=== PATIENT | male | born 1955 | race Caucasian/White ===

== ENCOUNTER 2019-03-13 12:29 | Emergency (ER) | payer OTHER ==
[2019-03-13 12:43] VITALS: BP 125/85
--- NOTE | 2019-03-13 13:16 | UC ---
Laceration HPI - HPI Summary HPI Summary: 63 yo male presents with nose injury. He tells me that he mis-stepped off the bottom rung of a ladder and his face went forward into the ladder hitting his nose. He sustained a small laceration on his nose and began to have a bloody nose. Bloody nose stopped with direct pressure. He applied a bandage and came to . States he thinks his tetanus is UTD. No LOC. Breathing without difficulty through his nose. - History Of Current Complaint Chief Complaint: UCLaceration Stated Complaint: LAC./BLOODLY NOSE Time Seen by Provider: 03/13/19 13:16 Hx Obtained From: Patient Laceration Location: Face Mechanism Of Injury: Blunt Trauma Onset/Duration: Sudden Onset Severity: Moderate Pain Intensity: 6 Pain Scale Used: 0-10 Numeric - Allergies/Home Medications Allergies/Adverse Reactions: Allergies Allergy/AdvReac Type Severity Reaction Status Date / Time No Known Allergies Allergy Verified 03/13/19 12:43 Home Medications: Home Medications Citalopram TAB* [CeleXA TAB*] 50 mg PO BEDTIME 03/13/19 [History Confirmed 03/13] buPROPion SR TAB* [Wellbutrin SR TAB*] 2 tab PO DAILY 03/13/19 [History Confirmed 03/13/19] PMH/Surg Hx/FS Hx/Imm Hx Psychological History: Anxiety, Depression - Surgical History Surgical History: None Surgery Procedure, Year, and Place: denies - Family History Known Family History: Positive: None - Social History Lives: With Family Alcohol Use: None Substance Use Type: None Smoking Status (MU): Never Smoked Tobacco Review of Systems All Other Systems Reviewed And Are Negative: Yes Constitutional: Positive: Negative Skin: Positive: Other - Nose laceration Eyes: Positive: Negative ENT: Positive: Other - Nose pain Respiratory: Positive: Negative Cardiovascular: Positive: Negative Neurological: Positive: Negative Psychological: Positive: Negative Physical Exam - Summary Physical Exam Summary: GENERAL: NAD. WDWN. No pain distress. SKIN: Overlying nasal bridge there is an 8mm linear laceration that is in good approximation at rest. Clean wound. Scant bleeding. HEENT: Head: No raccoon eyes or caballero's sign Eyes: PERRLA. EOM intact. Ears: Hearing grossly normal. Nose: Nasal mucosa on right with dried blood. Moderate inflammation. NTTP maxillary and frontal sinus. TTP inferior nasal bone. NECK: Supple. Nontender. FROM. CHEST: CTAB. No r/r/w. No accessory muscle use. Breathing comfortably and in no distress. CV: RRR. Without m/r/g. Pulses intact. Brisk cap refill. NEURO: Alert. CN II-XII grossly intact. PSYCH: Age appropriate behavior. Triage Information Reviewed: Yes Vital Signs: Initial Vital Signs Temp 98.9 F 03/13/19 12:40 Pulse 76 03/13/19 12:40 Resp 16 03/13/19 12:40 BP 125/85 03/13/19 12:40 Pulse Ox 100 03/13/19 12:40 Vital Signs Reviewed: Yes Laceration Repair - Laceration Repair 1 Description: Linear Laceration Size After Repair: Length (cm) - 0.8 Modified For Repair: No Cleansing Completed Via Routine Prep: Yes Closure Material: Skin Adhesive Closure Method: Single Layer Suture Of: Skin Laceration Course/Dx - Course/Dx Course Of Treatment: XR nasal: REPORT AND IMPRESSION: #. Minimally displaced fracture at the tip of the nasal bones. Overlying soft tissue swelling. #. Unremarkable orbital margins, zygomatic arches, and normally aerated maxillary, ethmoid, and frontal paranasal sinuses. Wound was cleansed with NS. Laceration in good approximation at rest, therefore dermabond was applied and dressed with a band-aid. Advised to f/u with ENT after nose edema resolves (likely 1 week). Apply ice to nose to decrease pain and swelling. - Diagnosis Provider Diagnosis: Laceration of nose, Nasal fracture Discharge - Sign-Out/Discharge Documenting (check all that apply): Patient Departure All imaging exams completed and their final reports reviewed: Yes - Discharge Plan Condition: Stable Disposition: HOME Patient Education Materials: Nasal Fracture (ED), Skin Adhesive Care (ED) Referrals: Emre Sweet MD [Medical Doctor] - 1 Week Bernadette Aviles MD [Primary Care Provider] - Additional Instructions: If you develop a fever, shortness of breath, chest pain, new or worsening symptoms - please call your PCP or go to the ED immediately. 1) Rest and apply ice to your nose to decrease pain and swelling 2) Please schedule an appointment with the Ear, Nose, and Throat doctor in 1 week for a recheck of your nose fracture - Billing Disposition and Condition Condition: STABLE Disposition: Home - Attestation Statements Provider Attestation: I was available for consult. This patient was seen by the [facility]. The patient was not presented to, seen by, or examined by me. -Glenn
== END 2019-03-13 14:18 | disposition home or self-care (01) ==
LOC: UCEAST 12:29
DX: S02.2XXA Fracture of nasal bones, initial encounter for closed fracture (principal); S01.21XA Laceration without foreign body of nose, initial encounter; F32.9 Major depressive disorder, single episode, unspecified; F41.9 Anxiety disorder, unspecified; Z79.899 Other long term (current) drug therapy; W22.8XXA Striking against or struck by other objects, initial encounter; Y92.9 Unspecified place or not applicable
CPT/HCPCS: 12011; 70160; 99211; G0463